=== PATIENT | female | born 1965 | race Caucasian/White ===

== ENCOUNTER 2018-07-25 18:22 | Emergency (ER) | END 2018-07-25 21:30 | disposition home or self-care (01) ==

== ENCOUNTER 2019-02-26 21:12 | Emergency (ER) | payer SELFPAY ==
[~2019-02-26] VITALS: Ht 160 cm; Wt 117.8 kg
[~2019-02-26 21:12] MED LIST: BENAZEPRIL; HYDR-3671 PO; HYDR25TA6 PO; POLY10DR19 BOTH EYES
[2019-02-26 21:33] VITALS: Ht 160 cm; Wt 117.8 kg
[2019-02-27] MEDS ORDERED: KETOROLAC 60 MG INJ IM STA (01:13)
[2019-02-27] MEDS ORDERED: morphine 10 MG INJ IM ONE (01:30)
[2019-02-27] MEDS ORDERED: HYDROCODONE/APAP (10/325) TAB PO ONE (01:30)
[2019-02-27] MEDS ORDERED: AMOX1TAB10 PO (03:23)
[2019-02-27] MEDS ORDERED: NAPR-985 PO (03:23)
[2019-02-27] MEDS ORDERED: TRAM50TA2 PO (03:23)
--- NOTE | 2019-02-27 03:57 | ERD ---
ER Documentation Chief Complaint Chief Complaint right lower tooth pain x 2 days; ate something hard; HTN takes HCTZ HPI History of Present Illness: Patient coming in today with complaint of right lower tooth pain for 2 days. Patient reports eating something hard and feeling to crack. Patient with known dental history. Denies fever, chills. Patient with history of hypertension At home pharmacological/nonpharmacological treatment for symptoms: denies Denies social concerns; Denies recent foreign travel ROS All systems reviewed and are negative except as per history of present illness. Medications Home Meds Active Scripts Tramadol HCl (Tramadol HCl) 50 Mg Tablet, 50 MG PO Q6 PRN for PAIN, #10 TAB Prov:JASPER COTTRELL V DRUM CARRIER 02/27/19 Naproxen* (Naprosyn*) 500 Mg Tablet, 500 MG PO BID PRN for PAIN AND/OR INFLAMMATION, #30 TAB Prov:JASPER COTTRELL V DRUM CARRIER 02/27/19 Amoxicillin/Potassium Clav (Amox-Clav 875-125 mg Tablet) 875-125 mg Tab, 1 TAB PO BID PRN for dental infection for 7 Days, #14 TAB Prov:JASPER COTTRELL V DRUM CARRIER 02/27/19 Polymyxin B Sulfate-TMP* (Polymyxin B-TMP Eye Drops*) 10 Ml Drops, 1 DROP BOTH EYES QID for 7 Days, #2 BOTTLE Prov:HERMES GILL PA-C 07/25/18 Reported Medications Hydralazine Hcl* (Apresoline*) 25 Mg Tab, 25 MG PO QID 07/05/13 Hydrochlorothiazide (Hydrochlorothiazide) 25 Mg Tablet, 25 MG PO DAILY 07/05/13 [Benazepril] No Conflict Check, 10 DAILY 07/05/13 Allergies Allergies: Coded Allergies: No Known Drug Allergy (Verified Allergy, Unknown, 11/01/13) PMhx/Soc History of Surgery: Yes (gallstones) Anesthesia Reaction: No Hx Neurological Disorder: No Hx Respiratory Disorders: No Hx Cardiac Disorders: No Hx Psychiatric Problems: No Hx Miscellaneous Medical Probl: Yes (HTN) Hx Alcohol Use: No Hx Substance Use: No Hx Tobacco Use: No Smoking Status: Never smoker FmHx Family History: diabetes; No coronary disease Physical Exam Vitals Vital Signs Date Temp Pulse Resp B/P (MAP) Pulse Ox O2 O2 Flow FiO2 Time Delivery Rate 02/27/19 68 18 184/106 99 Room Air 04:05 (132) 02/27/19 75 214/108 00:43 (143) 02/26/19 97.8 84 18 217/124 98 21:33 (155) Physical Exam Const: No acute distress Head: Atraumatic Eyes: Normal Conjunctiva ENT: Normal External Ears, Nose. Severe decay noted to all of teeth. Several missing teeth noted. No fluctuance noted. Tenderness to palpation to gumline. Neck: Full range of motion. No meningismus. Resp: Clear to auscultation bilaterally Cardio: Regular rate and rhythm, no murmurs Abd: Soft, non tender, non distended. Normal bowel sounds Skin: No petechiae or rashes Back: No midline or flank tenderness Ext: No cyanosis, or edema Neur: Awake and alert Psych: Normal Mood and Affect Results 24 hrs Laboratory Tests Test 02/27/19 01:33 POC Beta HCG, Qualitative NEGATIVE Current Medications Medications Dose Sig/Marilu Start Time Status Last (Trade) Ordered Route PRN Stop Time Admin Dose Reason Admin Morphine 6 mg ONCE ONCE 02/27/19 DC 02/27/19 Sulfate IM 01:30 02/27/19 01:39 (morphine) 01:31 1 tab ONCE ONCE 02/27/19 DC Acetaminophen PO 01:30 02/27/19 / 01:31 Hydrocodone Bitart ([place] (10/325)) Ketorolac 60 mg ONCE STAT 02/27/19 DC 02/27/19 Tromethamine IM 01:13 02/27/19 01:39 (Toradol) 01:14 Procedures/MDM ED course includes a thorough examination and history. Medications: Ketorolac for pain/inflammation; morphine for pain; [place] for pain Imaging: -- Labs: -- Low suspicion for life-threatening medical emergency. Suspicion for infectious process that requires immediate hospitalization or intervention. Otherwise healthy patient presenting with constellation of symptoms likely representing dental pain secondary to severe dental decay as characterized by history, physical exam findings. Patient initially hypertensive with 210/120. Patient reports that she needs to take her blood pressure medication. Patient discharged 180 systolic. Patient asymptomatic to hypertension. Patient reports pain is decreased to 4/10. Reports that she will take her medication when she gets home. No respiratory distress, otherwise relatively well appearing and nontoxic. Patient educated on diagnoses, prescriptions, follow-up care, return precautions. Strict return precautions given for worsening condition; questions answered discharge. Disposition for discharge with followup in 1-2 days with PCP/clinic AND dentist. Departure Diagnosis: Primary Impression: Toothache Condition: Stable Patient Instructions: Dental Abscess, Dental Pain Referrals: [facility] YOU HAVE RECEIVED A MEDICAL SCREENING EXAM AND THE RESULTS INDICATE THAT YOU DO NOT HAVE A CONDITION THAT REQUIRES URGENT TREATMENT IN THE EMERGENCY DEPARTMENT. FURTHER EVALUATION AND TREATMENT OF YOUR CONDITION CAN WAIT UNTIL YOU ARE SEEN IN YOUR DOCTORS OFFICE WITHIN THE NEXT 1-2 DAYS. IT IS YOUR RESPONSIBILITY TO MAKE AN APPOINTMENT FOR FOLOW-UP CARE. IF YOU HAVE A PRIMARY DOCTOR --you should call your primary doctor and schedule an appointment IF YOU DO NOT HAVE A PRIMARY DOCTOR YOU CAN CALL OUR PHYSICIAN REFERRAL HOTLINE AT IF YOU CAN NOT AFFORD TO SEE A PHYSICIAN YOU CAN CHOSE FROM THE FOLLOWING [facility] [address] [facility] [address] [facility] [facility] [address] [facility] [address] [facility] [address] [facility]. [facility]. [address] [facility] [facility] YOU HAVE RECEIVED A MEDICAL SCREENING EXAM AND THE RESULTS INDICATE THAT YOU DO NOT HAVE A CONDITION THAT REQUIRES URGENT TREATMENT IN THE EMERGENCY DEPARTMENT. FURTHER EVALUATION AND TREATMENT OF YOUR CONDITION CAN WAIT UNTIL YOU ARE SEEN IN YOUR DOCTORS OFFICE WITHIN THE NEXT 1-2 DAYS. IT IS YOUR RESPONSIBILITY TO MAKE AN APPOINTMENT FOR FOLOW-UP CARE. IF YOU HAVE A PRIMARY DOCTOR --you should call your primary doctor and schedule and appointment IF YOU DO NOT HAVE A PRIMARY DOCTOR YOU CAN CALL OUR PHYSICIAN REFERRAL HOTLINE AT . IF YOU CAN NOT AFFORD TO SEE A PHYSICIAN YOU CAN CHOSE FROM THE FOLLOWING [facility] INSTITUTIONS: [facility] [address] [place] [address] [facility] [address] [place] [address] [facility] [address] [address] [facility] ([facility] walk in clinic) Additional Instructions: Thank you very much for allowing us to participate in your care. Your health and safety is our top priority at [facility]. It is important to read all discharge instructions and education provided in your discharge packet. Proper hand hygiene is important. Staying hydrated is important. Call your primary care doctor and dentist TOMORROW for an appointment during the next 1-2 days and bring all the information and medications prescribed. Have prescriptions filled and follow precisely the directions on the label. Augmentin is for dental infection. Tramadol for moderate to severe pain; do not operate heavy machinery while taking this medication may cause drowsiness. Naprosyn to be taken daily for the next few days to prevent inflammatory pain. If the symptoms get worse and your provider is unavailable, return to the Emergency Department immediately. Return to ER if you get fever, chills, significant facial swelling, JASPER COTTRELL NP Feb 27, 2019 03:57
[2019-02-27 04:05] VITALS: BP 184/106; PULSE 68; RESP 18
== END 2019-02-27 04:12 | disposition home or self-care (01) ==
LOC: FTE 21:12
DX: K08.89 Other specified disorders of teeth and supporting structures (principal); I10 Essential (primary) hypertension
CPT/HCPCS: 81025; 96372; 99284; J1885; J2270

== ENCOUNTER 2019-03-03 19:53 | Emergency (ER) | payer MEDICAID, OTHER ==
[~2019-03-03] VITALS: Ht 162.6 cm; Wt 117.0 kg
[~2019-03-03 19:53] MED LIST changes: +AMOX1TAB10 PO; +NAPR-985 PO; +TRAM50TA2 PO
[2019-03-03 20:01] VITALS: Ht 162.6 cm; Wt 117.0 kg
--- NOTE | 2019-03-03 22:19 | ERD ---
ER Documentation Chief Complaint Chief Complaint sent from dental office for high blood pressure. denies cp or sob HPI The patient is a 54-year-old female, presenting to the ER from the dental office because of high blood pressure. She was seen in the ER about 4 days ago for dental pain and was treated with antibiotic and referred to a dentist whom she saw today. She denies headache, neck pain, chest pain, dyspnea, abdominal pain, vomiting, dizzy, diarrhea. She does not smoke nor drink, denies any unusual stress Past medical history: Hypertension Past surgical history: Cholecystectomy ROS All systems reviewed and are negative except as per history of present illness. Medications Home Meds Active Scripts Hydrocodone/Acetaminophen ([place] 5-325 Tablet) 1 Each Tablet, 1 TAB PO Q6H PRN for PAIN, #7 TAB Prov:OBED DUNCAN MD 03/04/19 Ibuprofen* (Motrin*) 600 Mg Tab, 600 MG PO Q6H PRN for PAIN AND OR ELEVATED TEMP, #20 TAB Prov:OBED DUNCAN MD 03/04/19 Naproxen* (Naprosyn*) 500 Mg Tablet, 500 MG PO BID PRN for PAIN AND/OR INFLAMMATION, #30 TAB Prov:JASPER COTTRELL NP 02/27/19 Amoxicillin/Potassium Clav (Amox-Clav 875-125 mg Tablet) 875-125 mg Tab, 1 TAB PO BID PRN for dental infection for 7 Days, #14 TAB Prov:JASPER COTTRELL NP 02/27/19 Reported Medications Hydralazine Hcl* (Apresoline*) 25 Mg Tab, 25 MG PO QID 07/05/13 Hydrochlorothiazide (Hydrochlorothiazide) 25 Mg Tablet, 25 MG PO DAILY 07/05/13 Discontinued Reported Medications [Benazepril] No Conflict Check, 10 DAILY 07/05/13 Discontinued Scripts Tramadol HCl (Tramadol HCl) 50 Mg Tablet, 50 MG PO Q6 PRN for PAIN, #10 TAB Prov:JASPER COTTRELL NP 02/27/19 Polymyxin B Sulfate-TMP* (Polymyxin B-TMP Eye Drops*) 10 Ml Drops, 1 DROP BOTH EYES QID for 7 Days, #2 BOTTLE Prov:HERMES GILL PA-C 07/25/18 Allergies Allergies: Coded Allergies: No Known Drug Allergy (Verified Allergy, Unknown, 11/01/13) PMhx/Soc History of Surgery: Yes (gallstones) Anesthesia Reaction: No Hx Neurological Disorder: No Hx Respiratory Disorders: No Hx Cardiac Disorders: No Hx Psychiatric Problems: No Hx Miscellaneous Medical Probl: Yes (HTN) Hx Alcohol Use: No Hx Substance Use: No Hx Tobacco Use: No Smoking Status: Never smoker Physical Exam Vitals Vital Signs Date Temp Pulse Resp B/P (MAP) Pulse Ox O2 O2 Flow FiO2 Time Delivery Rate 03/04/19 76 16 143/93 95 Room Air 00:02 (110) 03/03/19 195/101 20:50 (132) 03/03/19 98.4 96 18 195/123 98 20:01 (147) Physical Exam Const: No acute distress. Head: Atraumatic. Eyes: Normal Conjunctiva. ENT: Normal External Ears, Nose and Mouth. Neck: Full range of motion. No meningismus. Resp: Clear to auscultation bilaterally. Cardio: Regular rate and rhythm. Abd: Soft, non distended, normal bowel sounds, non tender. Skin: No petechiae or rashes. Back: No midline or flank tenderness. Ext: No cyanosis, or edema. Neur: Awake and alert. No focal deficit Psych: Normal Mood and Affect. Result Diagram: 03/03/19 2250 03/03/19 2249 Results 24 hrs Laboratory Tests Test 03/03/19 22:49 03/03/19 22:50 Sodium Level 142 mmol/L Potassium Level 3.0 mmol/L Chloride Level 100 mmol/L Carbon Dioxide Level 34 mmol/L Anion Gap 8 Blood Urea Nitrogen 18 mg/dl Creatinine 0.66 mg/dl Est Glomerular Filtrat Rate mL/min > 60 mL/min Glucose Level 103 mg/dl Calcium Level 9.4 mg/dl White Blood Count 10.8 10^3/ul Red Blood Count 5.16 10^6/ul Hemoglobin 13.9 g/dl Hematocrit 42.6 % Mean Corpuscular Volume 82.6 fl Mean Corpuscular Hemoglobin 26.9 pg Mean Corpuscular Hemoglobin Concent 32.6 g/dl Red Cell Distribution Width 13.4 % Platelet Count 270 10^3/UL Mean Platelet Volume 10.5 fl Immature Granulocytes % 0.700 % Neutrophils % 59.8 % Lymphocytes % 28.8 % Monocytes % 8.2 % Eosinophils % 1.9 % Basophils % 0.6 % Nucleated Red Blood Cells % 0.0 /100WBC Immature Granulocytes # 0.070 10^3/ul Neutrophils # 6.5 10^3/ul Lymphocytes # 3.1 10^3/ul Monocytes # 0.9 10^3/ul Eosinophils # 0.2 10^3/ul Basophils # 0.1 10^3/ul Nucleated Red Blood Cells # 0.0 10^3/ul Current Medications Medications Dose Sig/Marilu Start Time Status Last (Trade) Ordered Route PRN Stop Time Admin Dose Reason Admin Nifedipine 30 mg ONCE ONCE 03/03/19 DC 03/03/19 (Procardia PO 23:00 03/03/19 22:53 Xl) 23:01 Labetalol 20 mg ONCE ONCE 03/03/19 DC 03/03/19 HCl IV 23:00 03/03/19 23:35 (Labetalol) 23:01 1 tab ONCE ONCE 03/03/19 DC 03/03/19 Acetaminophen PO 23:00 03/03/19 23:35 / 23:01 Hydrocodone Bitart ([place] ()) Ondansetron 4 mg ONCE STAT 03/03/19 DC 03/03/19 HCl (Zofran ODT 22:50 03/03/19 23:35 Odt) 22:56 Potassium 60 meq ONCE ONCE 03/03/19 DC Chloride PO 23:38 03/03/19 (Klor-Con 20) 23:39 Procedures/MDM MEDICAL MAKING DECISION: The patient is a 54-year-old female, presenting to the ER because of acute hypertensive urgency, acute hypokalemia, acute dental pain. She was treated with Procardia XL 30 mg p.o., labetalol 20 mg IV for acute hypertensive urgency, [place] 10 mg p.o. for dental pain and Zofran ODT for nausea, potassium chloride 60 mEq p.o. for acute hypokalemia with good response. Blood pressure improved. She is stable for outpatient follow-up The differential diagnoses considered include but are not limited to elevated blood pressure due to acute dental pain, medical noncompliance, dietary noncompliance Departure Diagnosis: Primary Impression: Hypertensive urgency Additional Impressions: Hypokalemia Pain, dental Condition: Good Comments She was discharged with 7 tabs [place] 5mg and Motrin I discussed the findings with the patient. I advised the patient to follow-up with the primary physician in about 1-2 days, sooner if needed and return if any concern. Disclaimer: Inadvertent spelling and grammatical errors are likely due to EHR/d ictation software use and do not reflect on the overall quality of patient care. Also, please note that the electronic time recorded on this note does not necessarily reflect the actual time of the patient encounter. OBED DUNCAN MD Mar 03, 2019 22:19
[2019-03-03] MEDS ORDERED: ONDANSETRON (ODT) 4 MG TAB ODT STA (22:50)
[2019-03-03] MEDS ORDERED: LABETALOL HCL 20MG INJ IV ONE (23:00)
[2019-03-03] MEDS ORDERED: HYDROCODONE/APAP (10/325) TAB PO ONE (23:00)
[2019-03-03] MEDS ORDERED: NIFEdipine (XL) 30 MG TAB PO ONE (23:00)
[2019-03-03] MEDS ORDERED: POTASSIUM CHLORIDE (SR) 20 MEQ TAB PO ONE (23:38)
[2019-03-04 00:02] VITALS: BP 143/93; PULSE 76; RESP 16
[2019-03-04] MEDS ORDERED: IBUP-1542 PO (00:12)
[2019-03-04] MEDS ORDERED: HYDR-4011 PO (00:13)
== END 2019-03-04 00:25 | disposition home or self-care (01) ==
LOC: E/R 19:53
DX: I16.0 Hypertensive urgency (principal); E87.6 Hypokalemia; K08.89 Other specified disorders of teeth and supporting structures
CPT/HCPCS: 80048; 85025; 96374; Z7502; Z7610